=== PATIENT | female | born 1995 | race Caucasian/White ===

== ENCOUNTER 2017-10-07 08:30 | Emergency (ER) | payer OTHER ==
[~2017-10-07] VITALS: Ht 157.5 cm; Wt 73.5 kg
[2017-10-07 09:19] LABS: ABSOLUTE NEUTROPHILS 3.5 thou/uL (1.4-8.2); BASOPHILS 0.8 % (0.0-2.0); EOSINOPHILS 1.7 % (0.0-3.0); HEMATOCRIT 40.7 % (37.0-47.0); HEMOGLOBIN 13.6 gm/dL (12.0-15.0); LYMPHOCYTES 34.6 % (24.0-44.0); MCH 25.8 pg (26.0-34.0); MCHC 33.3 g/dL (28.0-37.0); MCV 77.5 fL (80.0-100.0); MONOCYTES 7.1 % (1.0-8.0); PLATELET COUNT 186 thou/uL (150-400); POLYS 55.8 % (36.0-66.0); RBC 5.26 mil/uL (4.20-5.00); RDW 14.5 % (10.5-14.5); WBC 6.3 thou/uL (4.0-11.0)
[2017-10-07 09:33] LABS: ANION GAP 10 mmol/L (7-16); BUN 17 mg/dL (7-18); CALCIUM 8.9 mg/dL (8.5-10.1); CHLORIDE 107 mmol/L (98-107); CO2 24 mmol/L (21-32); CREATININE 0.6 mg/dL (0.6-1.0); GLUCOSE 116 mg/dL (74-106); POTASSIUM 3.9 mmol/L (3.5-5.1); SODIUM 141 mmol/L (136-145)
[2017-10-07 09:39] LABS: DIRECT BILIRUBIN < 0.1 mg/dL (<0.1-0.3); LIPASE 102 U/L (73-393); SGOT 23 U/L (15-37); SGPT 32 U/L (30-65); TOTAL BILIRUBIN 0.4 mg/dL (<0.1-1.0)
== END 2017-10-07 10:19 | disposition home or self-care (01) ==
LOC: ER 08:30
PROVIDERS: Emergency Medicine
DX: R10.30 Lower abdominal pain, unspecified (principal); R19.7 Diarrhea, unspecified; G89.29 Other chronic pain; G43.909 Migraine, unspecified, not intractable, without status migrainosus; Z88.8 Allergy status to other drugs, medicaments and biological substances

== ENCOUNTER 2018-05-18 20:53 | Emergency (ER) | payer OTHER ==
[~2018-05-18] VITALS: Ht 157.5 cm; Wt 74.8 kg
[2018-05-18 22:48] LABS: ABSOLUTE NEUTROPHILS 6.2 thou/uL (1.4-8.2); BASOPHILS 0.7 % (0.0-2.0); EOSINOPHILS 0.5 % (0.0-3.0); HEMATOCRIT 41.8 % (37.0-47.0); HEMOGLOBIN 14.6 gm/dL (12.0-15.0); LYMPHOCYTES 30.4 % (24.0-44.0); MCH 27.6 pg (26.0-34.0); MONOCYTES 5.7 % (1.0-8.0); PLATELET COUNT 189 thou/uL (150-400); POLYS 62.7 % (36.0-66.0); RBC 5.29 mil/uL (4.20-5.00); RDW 13.8 % (10.5-14.5); WBC 9.9 thou/uL (4.0-11.0)
[2018-05-18 22:55] LABS: CALCIUM 9.7 mg/dL (8.5-10.1); CREATININE 0.8 mg/dL (0.6-1.0); POTASSIUM 3.4 mmol/L (3.5-5.1)
[2018-05-18 23:01] LABS: ALBUMIN 4.2 g/dL (3.4-5.0); TOTAL BILIRUBIN 1.4 mg/dL (<0.1-1.0); TOTAL PROTEIN 7.6 g/dL (6.4-8.2)
[2018-05-18 23:31] VITALS: BP 145/88
== END 2018-05-18 23:39 | disposition home or self-care (01) ==
LOC: ER 20:53
PROVIDERS: Physician Assistant
DX: S00.83XA Contusion of other part of head, initial encounter (principal); S80.811A Abrasion, right lower leg, initial encounter; K92.0 Hematemesis; M25.561 Pain in right knee; R10.84 Generalized abdominal pain; R31.9 Hematuria, unspecified; R30.0 Dysuria; G43.909 Migraine, unspecified, not intractable, without status migrainosus; K58.9 Irritable bowel syndrome, unspecified; Z88.8 Allergy status to other drugs, medicaments and biological substances; Z88.6 Allergy status to analgesic agent; Y04.2XXA Assault by strike against or bumped into by another person, initial encounter; Y92.810 Car as the place of occurrence of the external cause; Y93.89 Activity, other specified; Y99.8 Other external cause status